=== PATIENT | female | born 1985 | race African-American/Black ===

== ENCOUNTER 2023-07-30 13:07 | Emergency (ER) | payer MEDICAID ==
[~2023-07-30] VITALS: Ht 172.7 cm; Wt 95.0 kg
[2023-07-30 13:17] VITALS: O2SAT 98
[2023-07-30] MEDS ORDERED: ACETAMINOPHEN 325MG TABLET PO ONE (13:45)
[2023-07-30] MEDS ORDERED: ONDANSETRON HCL 4MG/2ML INJ IV ONE (13:45)
[2023-07-30] MEDS ORDERED: LACTATED RINGERS 1,000 ML IV SCH (13:45)
[2023-07-30 13:58] LABS: CHLORIDE 108 mEq/L (98-107); INDEX HEMOLYSI 1 (1-3); INDEX ICTERIC 1 (1-4); INDEX LIPEMIC 1 (1-3); POTASSIUM 3.6 mEq/L (3.5-5.1); SODIUM 136 mEq/L (136-145)
[2023-07-30 14:06] LABS: BASOPHILS % 0.1 % (0.0-2.0); EOSINOPHILS % 0.8 % (0.0-5.0); HEMATOCRIT. 38.1 % (36.0-48.0); HEMOGLOBIN. 12.8 g/dL (12.0-16.0); LYMPHOCYTES % 10.8 % (20.0-50.0); MEAN CORPUSCULAR HGB CONC 33.5 g/dL (31.0-37.0); MEAN CORPUSCULAR VOLUME 89.7 fL (81.0-99.0); MEAN PLATELET VOLUME 9.5 fl (7.4-10.4); MONOCYTES % 8.8 % (2.0-8.0); NEUTROPHILS % 79.5 % (40.0-76.0); PLATELET 267 x1000/uL (130-400); RED BLOOD CELL COUNT 4.25 mill/uL (4.2-5.4); RED CELL DISTRIBUTION WIDTH 13.9 % (11.6-14.6); WHITE BLOOD COUNT 7.4 x1000/uL (4.5-11.0)
[2023-07-30 14:07] LABS: ALANINE AMINOTRANSFERASE 21 IU/L (13-61); ALBUMIN 3.9 g/dL (3.4-5.0); ASPARTATE AMINOTRANSFERASE 18 IU/L (15-37); BILIRUBIN TOTAL 0.5 mg/dL (0.1-1.0); CARBON DIOXIDE 22 mEq/L (21-32); CREATININE 0.7 mg/dL (0.6-1.3); GLUCOSE 103 mg/dL (70-105); PROTEIN TOTAL 7.9 g/dL (6.0-8.3); UREA NITROGEN BLOOD 8 mg/dL (7-21)
[2023-07-30 14:30] LABS: CLARITY URINE CLOUDY (CLEAR); COLOR URINE DARK YELLOW (YELLOW); GLUCOSE URINE NEGATIVE (NEGATIVE); KETONES URINE TRACE (NEGATIVE); LEUKOCYTE ESTERASE URINE NEGATIVE (NEGATIVE); NITRITE URINE NEGATIVE (NEGATIVE); OCCULT BLOOD URINE NEGATIVE (NEGATIVE); PH URINE 5.5 (4.5-8.0); PROTEIN URINE TRACE (NEGATIVE); SPECIFIC GRAVITY URINE 1.027 (1.005-1.030); UROBILINOGEN URINE 0.2 E.U./dL (0.2-1.0)
[2023-07-30 14:35] LABS: BACTERIA URINE 1+; RBC URINE 0-2 /hpf (0-2); SQUAMOUS EPITHELIAL CELL URINE 1+ /lpf (RARE/1+); WBC URINE 0-2 /hpf (0-2); YEAST URINE NONE SEEN
[2023-07-30 15:13] LABS: HCG SCREEN NEGATIVE
[2023-07-30] MEDS ORDERED: IOHEXOL-300 50 ML BOTTLE IV ONE (17:29)
[2023-07-30] MEDS ORDERED: ONDANSETRON 4MG ODT PO ONE (18:00)
[2023-07-30] MEDS ORDERED: IBUPROFEN 600MG TABLET PO ONE (18:00)
[2023-07-30] MEDS ORDERED: CIPR-263 MT (18:49)
[2023-07-30] MEDS ORDERED: ONDA4TAB11 PO (18:49)
[2023-07-30] MEDS ORDERED: DICY20TA2 MT (18:49)
[2023-07-30] MEDS ORDERED: METR-167 MT (18:49)
[2023-07-30] MEDS ORDERED: IMIT25 MT (19:09)
[2023-07-30 19:16] VITALS: BP 138/78; PULSE 88; RESP 18; TEMP 98.6
== END 2023-07-30 19:23 | disposition home or self-care (01) ==
LOC: EDBD 14:22 → ER 14:22
DX: K52.9 Noninfective gastroenteritis and colitis, unspecified (principal); I10 Essential (primary) hypertension
CPT/HCPCS: 80053; 81003; 84703; 83690; 85025; 36415; 74177; 96361; 96374; 99285; Q9967; Q0162; J2405; Z7610